=== PATIENT | female | born 1940 ===

== ENCOUNTER → 2021-06-07 | Outpatient (CLI) | payer MEDICARE ==
--- NOTE | 2021-06-07 15:46 | Diagnostic Imaging Report ---
INDICATION: Followup knee fracture. COMPARISON: MRI dated 05/26/2021 FINDINGS: 3 radiographic views of the right knee were obtained. Multiple intra-articular fractures of the medial tibial plateau are identified. There is also impaction of the medial tibial plateau. This corresponds to appearance seen on previous MRI. Chronic appearing deformity of the proximal fibula is also noted. Distal femur and patella are intact. Joint spaces are maintained. There is no large joint effusion. IMPRESSION: 1. Fracture of the medial tibial plateau as described above. Dictated by: Dictated on workstation # [id number]
== END ==
LOC: ORTHO 14:25
PROVIDERS: ATTEND Orthopaedic Surgery
DX: S82.134D Nondisplaced fracture of medial condyle of right tibia, subsequent encounter for closed fracture with routine healing (principal); X58.XXXD Exposure to other specified factors, subsequent encounter
CPT/HCPCS: 73562; G0463; 99203

== ENCOUNTER → 2021-07-11 | Outpatient (CLI) | payer MEDICARE ==
--- NOTE | 2021-07-11 13:23 | Diagnostic Imaging Report ---
INDICATION: Right knee pain. Comparison with 06/07/2021. The medial tibial plateau fracture noted previously has healed. There are no acute changes. There is loss of joint space medial compartment with moderate arthritic changes. Lateral compartment is well preserved. The patellofemoral joint shows good alignment with normal appearing trochlea. Moderate degenerative change. 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 There has been healing of the medial tibial plateau fracture. Dictated by: Dictated on workstation # [id number]
== END ==
LOC: ORTHO 10:01
PROVIDERS: ATTEND Orthopaedic Surgery
DX: M17.11 Unilateral primary osteoarthritis, right knee (principal); S82.131D Displaced fracture of medial condyle of right tibia, subsequent encounter for closed fracture with routine healing
CPT/HCPCS: 73562; G0463; 99212